=== PATIENT | male | born 1975 | race Caucasian/White ===

== ENCOUNTER 2017-05-18 15:00 | Inpatient (IN) | payer OTHER ==
[2017-05-18] MEDS ORDERED: KETOROLAC 30 MG/1 ML SDV ONE (15:15)
[2017-05-18] MEDS ORDERED: ONDANSETRON 4 MG/2 ML VIAL IVP ONE (15:22)
[2017-05-18] MEDS ORDERED: HYDROmorphONE/DILAUDID 2 MG/ML INJ IVP ONE (15:22)
[2017-05-18] MEDS ORDERED: NS 1,000 ML IV ONE ×2 (15:22→16:27)
--- NOTE | 2017-05-18 15:26 | EDPHY ---
HPI/HX/ROS/PE/MDM Narrative: CHIEF COMPLAINT: Abdominal pain, nausea, vomiting HISTORY OF PRESENT ILLNESS: The patient is a 41 y/o male with a history of alcoholism who recently relapsed this weekend and currently complaining of abdominal pain, nausea, and vomiting. He drove up from [place] yesterday and en route developed sweating, nausea, vomiting, difficulty eating, and a racing heart rate. He stopped at a [facility] ED in [place] and was treated for alcohol withdrawal with Ativan, Zofran, fluids, and given a script for Librium, which he has been taking as prescribed. Last night he felt normal and did not drink alcohol. He continued to feel okay this morning until going to a conference in [place]. While sitting during the presentation he suddenly developed profuse sweating, severe abdominal pain, and nausea. He had to abruptly leave and vomited multiple times. He tried to treat symptoms by drinking water and lying down, but continued to feel poorly. He currently feels bloated, feverish, complains of chest and back pressure, and states "my stomach feels like it will explode." His pain is worse in his epigastrium and somewhat reminiscent of prior episodes of pancreatitis. Other than Librium, he denies medication changes, marijuana or illicit drug use, cardiac or respiratory disease history, abdominal surgeries, or known ulcer disease. He has a family history of gall bladder disease. No chills, palpitations, diarrhea, urinary complaints, headache, lightheadedness. REVIEW OF SYSTEMS: Aside from elements discussed in the HPI, a comprehensive 10-point review of systems was reviewed and is negative. PAST MEDICAL HISTORY: Alcoholism, pancreatitis, hypertension, hypercholesterolemia, acid reflux SOCIAL HISTORY: From [place], attending conference in [place]. Employed. VITAL SIGNS: Reviewed by me GENERAL: Well-developed, well-nourished, uncomfortable-appearing, bloated, in no respiratory distress. HEENT: Atraumatic. Eyes: No icterus, no injection. Mouth: moist mucous membranes. No erythema or lesions. Neck: supple with no adenopathy. LUNGS: Clear to auscultation bilaterally, no wheezes, rhonchi or rales. CARDIAC: Tachycardic rate and rhythm, no rubs, murmurs or gallops. ABDOMEN: Soft, diffuse tenderness and voluntary guarding, worse in epigastrium, distended. BACK: No CVA tenderness. EXTREMITIES: No trauma. No edema. Range of motion is normal throughout. NEURO: Alert and oriented, grossly nonfocal. Mildly tremulous. SKIN: Warm and dry, no rash. PSYCHIATRIC: Normal mentation, no agitation. Portions of this note were transcribed by a biomedical engineering professor. I personally performed a history, physical exam, medical decision making, and confirmed accuracy of information the transcribed note. ED Course: This is a 41 y/o male with alcoholism and prior pancreatitis who presents with acute onset abdominal pain, nausea, and vomiting less than 24 hours after being treated for alcohol withdrawal following a relapse over the weekend. He has diffuse abdominal tenderness worst in the epigastrium with voluntary guarding and distension. He is mildly tremulous and tachycardic. Presentation suspicious for pancreatitis. Plan for IV, labs, EKG, chest x-ray, and symptom management. 1L IV NS, 4mg IV Zofran, 1mg IV Dilaudid, 0.5mg IV Ativan ordered. The 12 lead EKG was interpreted by myself. Sinus rhythm. See hard copy and/or "tracemaster" electronic copy for interpretation. Chest x-ray: nothing acute. Lipase elevated at 2200. Reassessed patient and recommended admission for pancreatitis, which he agrees to. Spoke with hospitalist service. Dr. De Paz accepts admission. Abdominal CT: acute uncomplicated pancreatitis. MDM: After obtaining the patients history and performing an examination, differential diagnosis considered included but was not limited to cholecystitis , gastritis, pancreatitis, alcohol withdrawl, kidney stones, urinary tract infections and other causes. - Data Points Imaging Results: Imaging Impressions Chest X-Ray 05/18/17 15:23 Impression: Normal chest. Abdomen CT 05/18/17 16:19 Impression: 1. Acute uncomplicated pancreatitis. 2. No CT evidence of appendicitis, abscess or bowel obstruction. 3. At least moderate hepatic steatosis. Findings were communicated by telephone with Dr. Rosey Morgan MD at 2017 17:02 Imaging: Discussed imaging studies w/ call center coordinator Radiologist, I viewed and interpreted images myself Laboratory Results: Laboratory Results 05/18/17 15:05 05/18/17 15:05 05/18/17 05/18/17 15:05 15:05 WBC 8.90 10^3/uL 10^3/uL (3.80-9.50) RBC 5.27 10^6/uL 10^6/uL (4.40-6.38) Hgb 15.6 g/dL g/dL (13.7-17.5) Hct 44.3 % % (40.0-51.0) MCV 84.1 fL fL (81.5-99.8) MCH 29.6 pg pg (27.9-34.1) MCHC 35.2 g/dL g/dL (32.4-36.7) RDW 12.5 % % (11.5-15.2) Plt Count 234 10^3/uL 10^3/uL (150-400) MPV 10.0 fL fL (8.7-11.7) Neut % (Auto) 86.0 % H % (39.3-74.2) Lymph % (Auto) 7.8 % L % (15.0-45.0) [place] % (Auto) 5.3 % % (4.5-13.0) Eos % (Auto) 0.4 % L % (0.6-7.6) Baso % (Auto) 0.3 % % (0.3-1.7) Nucleat RBC Rel Count 0.0 % % (0.0-0.2) Absolute Neuts (auto) 7.65 10^3/uL H 10^3/uL (1.70-6.50) Absolute Lymphs (auto) 0.69 10^3/uL L 10^3/uL (1.00-3.00) Absolute Monos (auto) 0.47 10^3/uL 10^3/uL (0.30-0.80) Absolute Eos (auto) 0.04 10^3/uL 10^3/uL (0.03-0.40) Absolute Basos (auto) 0.03 10^3/uL 10^3/uL (0.02-0.10) Absolute Nucleated RBC 0.00 10^3/uL 10^3/uL (0-0.01) Immature Gran % 0.2 % % (0.0-1.1) Immature Gran # 0.02 10^3/uL 10^3/uL (0.00-0.10) Sodium 134 mEq/L L mEq/L (135-145) Potassium 4.1 mEq/L mEq/L (3.5-5.2) Chloride 99 mEq/L mEq/L (97-110) Carbon Dioxide 19 mEq/l L mEq/l (22-31) Anion Gap 16 mEq/L mEq/L (8-16) BUN 13 mg/dL mg/dL (7-23) Creatinine 1.0 mg/dL mg/dL (0.7-1.3) Estimated GFR > 60 Glucose 152 mg/dL H mg/dL (70-100) Calcium 9.2 mg/dL mg/dL (8.5-10.4) Total Bilirubin 1.2 mg/dL mg/dL (0.1-1.4) Conjugated Bilirubin 0.4 mg/dL mg/dL (0.0-0.5) Unconjugated Bilirubin 0.8 mg/dL mg/dL (0.0-1.1) AST 87 IU/L H IU/L (17-59) ALT 56 IU/L IU/L (21-72) Alkaline Phosphatase 106 IU/L IU/L (38-126) Troponin I < 0.012 ng/mL ng/mL (0.000-0.034) Total Protein 7.3 g/dL g/dL (6.3-8.2) Albumin 4.5 g/dL g/dL (3.5-5.0) Lipase 2200 IU/L H IU/L (23-300) Medications Given: Discontinued Medications Hydromorphone HCl (Dilaudid) 1 mg IVP EDNOW ONE Stop: 05/18/17 15:23 Last Admin: 05/18/17 15:45 Dose: 1 mg Sodium Chloride (Ns) 1,000 mls @ 0 mls/hr IV EDNOW ONE; Wide Open PRN Reason: Protocol Stop: 05/18/17 15:23 Last Admin: 05/18/17 15:43 Dose: 1,000 mls Sodium Chloride (Ns) 1,000 mls @ 3,000 mls/hr IV ONCE ONE Stop: 05/18/17 16:46 Last Admin: 05/18/17 16:28 Dose: 1,000 mls Lorazepam (Ativan Injection) 0.5 mg IVP EDNOW ONE Stop: 05/18/17 15:39 Last Admin: 05/18/17 15:46 Dose: 0.5 mg Ondansetron HCl (Zofran) 4 mg IVP EDNOW ONE Stop: 05/18/17 15:23 Last Admin: 05/18/17 15:44 Dose: 4 mg General Time Seen by Provider: 05/18/17 15:12 Initial Vital Signs: Initial Vital Signs Temperature (C) 36.8 C 05/18/17 15:05 Heart Rate 108 H 05/18/17 15:05 Respiratory Rate 16 05/18/17 15:05 Blood Pressure 129/86 H 05/18/17 15:05 O2 Sat (%) 92 05/18/17 15:05 O2 Delivery Mode Room Air Allergies/Adverse Reactions: No Known Allergies Allergy (Unverified 05/18/17 15:05) Home Medications: Medication Instructions Recorded Escitalopram Oxalate [Lexapro] 20 mg PO DAILY 05/18/17 Lisinopril [Zestril 20 mg (*)] 20 mg PO DAILY 05/18/17 Pantoprazole Sodium [Protonix 40mg 40 mg PO DAILY PRN 05/18/17 (*)] Simvastatin 40 mg PO HS 05/18/17 Topiramate 50 mg PO HS 05/18/17 amLODIPine BESYLATE [Norvasc 10 mg 10 mg PO DAILY 05/18/17 (*)] buPROPion [Wellbutrin 75mg (*)] 75 mg PO DAILY 05/18/17 chlordiazePOXIDE [Librium 25 mg 50 mg PO TID 05/18/17 (*)] Acetaminophen [Tylenol 325mg (*)] 650 mg PO Q4HRS PRN tab 05/20/17 Departure - Departure Disposition: [facility] Acute Clinical Impression: Pancreatitis, Abdominal pain, Vomiting Condition: Fair Report Scribed for: Rosey Morgan Report Scribed by: Marj Dewey Date of Report: 05/18/17 Time of Report: 15:43
[2017-05-18 15:29] LABS: PLATELET COUNT 234 10^3/uL (150-400)
[2017-05-18] MEDS ORDERED: LORazepam 2 MG/ML INJ IVP ONE (15:38)
--- NOTE | 2017-05-18 15:57 | CPEKG ---
Heart Rate: 99 RR Interval: 606 P-R Interval: 156 QRSD Interval: 86 QT Interval: 340 QTC Interval: 437 P [place]: 39 QRS [place]: 73 T Wave [place]: -4 EKG Severity - BORDERLINE ECG - EKG Impression: SINUS RHYTHM EKG Impression: BORDERLINE INFERIOR Q WAVES EKG Impression: BORDERLINE T ABNORMALITIES, INFERIOR LEADS Electronically Signed By: Rosey Morgan 18-May-2017 22:04:37
[2017-05-18] MEDS ORDERED: IOPAMIDOL (ISOVUE-300) 100 ML BTL ONE (16:23)
[2017-05-18] MEDS ORDERED: ONDANSETRON 4 MG/2 ML VIAL IVP PRN (17:09)
[2017-05-18] MEDS ORDERED: ONDANSETRON DISINTEGRATING 4 MG TAB PO PRN (17:09)
[2017-05-18] MEDS ORDERED: ACETAMINOPHEN 325 MG TAB PO PRN (17:09)
[2017-05-18] MEDS ORDERED: NS 1,000 ML IV SCH (18:15)
[2017-05-18] MEDS: HYDROmorphone HCL/NS 0.5 MG/ML SYR IVP PRN ×2 (18:21→22:36)
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
[2017-05-18] MEDS ORDERED: D50W 25 GM/50 ML VIAL IVP PRN (22:51)
[2017-05-19] MEDS: D5W NS 1,000 ML IV SCH ×2 (02:33→10:25)
[2017-05-19] MEDS: HYDROmorphone HCL/NS 0.5 MG/ML SYR IVP PRN ×2 (03:20→07:54)
[2017-05-19] MEDS: ENOXAPARIN 40 MG/0.4 ML SYR SC SCH (07:55)
[2017-05-19] MEDS ORDERED: INSULIN LISPRO 100 UNIT/ML SC SCH (08:00)
[2017-05-19] MEDS ORDERED: PANTOPRAZOLE SODIUM 40 MG VIAL IVP SCH (09:00)
[2017-05-19] MEDS: oxyCODONE IR 5 MG TAB PO PRN ×2 (11:29→19:39)
--- NOTE | 2017-05-19 11:48 | PDMN ---
Medical Necessity Medical necessity: Patient meets inpatient criteria per physician note and [facility] M -250 Pancreatitis (patient presents w/acute abd pain, N/V; lipase 2200, CT shows pancreas w/peripancreatic inflammatory stranding; history of recovering alcoholism/prev pancreatitis; anticipated LOS > 2 midnights for bowel rest, IV hydration, IV antiemetics and Dilaudid for pain control.)
[2017-05-19] MEDS ORDERED: chlordiazePOXIDE 25 MG CAP PO PRN (12:15)
[2017-05-19] MEDS ORDERED: PANTOPRAZOLE SODIUM 40 MG TAB PO PRN (12:15)
[2017-05-19] MEDS ORDERED: NON-FORMULARY NEW DRUG (Escitalopram Oxalate [Lexapro] 20 MG) PO SCH (12:15)
--- NOTE | 2017-05-19 12:28 | HOSPPROG ---
Hospitalist Progress Note Assessment/Plan: 41 yo M with hx of etoh abuse and recurrent bouts of pancreatitis admitted for midepigastric abdominal pain found to be secondary to acute recurrent pancreatitis # acute recurrent pancreatitis: patient has had several bouts of this, including one that kept him in the hospital x 17 days including an ICU stay. This episode triggered by relapse in drinking alcohol similar to prior bouts. Abdominal CT personally reviewed showing acute recurrent pancreatitis. Will continue IVF, advance diet slowly as patient states he is beginning to feel hungry. # etoh abuse: patient largely in remission per his report but occasional relapses involving binge drinking, no e/o withdrawal currently, he states he does plan to quit drinking # anxiety/depression: continue home medications including wellbutrin # gerd: continue PPI # hypovolemic hyponatremia: mild, normalized # hyperglycemia: suspect related to stress as well as fluids containing D5, will switch to Ns # IP status Patient new to my care. Records reviewed and summarized as above. Subjective: no significant overnight events, patient still with significant abdominal pain but also beginning to feel hungry Objective: Vital Signs Temp Pulse Resp BP Pulse Ox 36.6 C 85 20 132/96 H 93 05/19/17 11:18 05/19/17 11:18 05/19/17 11:18 05/19/17 11:18 05/19/17 11:18 Laboratory Results 05/19/17 04:48 05/18/17 05/19/17 05/20/17 05:59 05:59 05:59 Intake Total 3334 Balance 3334 awake alert nad anicteric op clear mmm rrr no mrg cta b soft ttp midepigastric region no rebound or guarding bowel sounds present no cce warm dry well perfused oriented appropriate - Time Spent With Patient Time Spent with Patient: greater than 35 minutes Time Spent with Patient: Greater than 35 minutes spent on this patients care, greater than 50% of time spent counseling, educating, and coordinating care regarding the above mentioned plan. ICD10 Worksheet Patient Problems: Problems Problem Status Onset Pancreatitis Acute
[2017-05-19] MEDS ORDERED: NS 1,000 ML IV SCH (12:30)
[2017-05-19] MEDS: LISINOPRIL 20 MG TAB PO SCH (12:35)
[2017-05-19] MEDS: buPROPion 75 MG TAB PO SCH (12:35)
[2017-05-19] MEDS: ESCITALOPRAM OXALATE 10 MG TAB PO SCH (12:38)
--- NOTE | 2017-05-19 16:05 | ASMTCMCOM ---
CM Note CM Note Notes: Pt admitted for pancreatitis r/t relapse in alcohol consumption. Met w/pt to offer resources for alcohol treatment, CAGE completed. Pt reported being a recovering alcoholic since 2009; he has done inpatient stay at [facility] in the past and he continues to follow up w/psychiatrist, PCP, [facility]. He states that he has had a few relapses and they are triggered by circumstances, reported losing his mom recently and recent separation from . He lives in [place] and was in [place] for work conference when he became ill and brought himself to [facility]. Pt was open to receiving resources for alcohol treatment and seems to be motivated to get healthy. Pt's car is at [facility] and when he is dc'd from hosp he plans to take cab there and have relatives come up from [place] and drive him back. CM will follow. Date Signed: 05/19/2017 04:04 PM Electronically Signed By:Charlee Wilson RN
[2017-05-19] MEDS ORDERED: NON-FORMULARY NEW DRUG (Simvastatin [Simvastatin] 40 MG) PO SCH (21:00)
[2017-05-19] MEDS ORDERED: TOPIRAMATE 25 MG TAB PO SCH (21:00)
[2017-05-19] MEDS ORDERED: ATORVASTATIN CALCIUM 20 MG TAB PO SCH (21:00)
[2017-05-19] MEDS ORDERED: NON-FORMULARY NEW DRUG (Topiramate [Topiramate] 50 MG) PO SCH (21:00)
[2017-05-20] MEDS: oxyCODONE IR 5 MG TAB PO PRN (00:55)
[2017-05-20 09:02] VITALS: BP 108/74
[2017-05-20] MEDS: ENOXAPARIN 40 MG/0.4 ML SYR SC SCH (09:26)
[2017-05-20] MEDS: LISINOPRIL 20 MG TAB PO SCH (09:26)
[2017-05-20] MEDS: ESCITALOPRAM OXALATE 10 MG TAB PO SCH (09:27)
[2017-05-20] MEDS: buPROPion 75 MG TAB PO SCH (09:27)
--- NOTE | 2017-05-20 10:02 | PDDCSUM ---
Discharge Summary Discharge Summary: Dates of service 05/18-05/20/17 Consultations: none Procedures: abd CT Hospital course by problem: 41 yo M with hx of etoh abuse and recurrent bouts of pancreatitis admitted for midepigastric abdominal pain found to be secondary to acute recurrent pancreatitis # acute recurrent pancreatitis: patient has had several bouts of this, including one that kept him in the hospital x 17 days including an ICU stay. This episode triggered by relapse in drinking alcohol similar to prior bouts. Abdominal CT personally reviewed showing acute recurrent pancreatitis. Pain now essentially resolved and patient tolerating diet without issues # etoh abuse: patient largely in remission per his report but occasional relapses involving binge drinking, no e/o withdrawal currently, he states he does plan to quit drinking # anxiety/depression: continue home medications including wellbutrin # gerd: continue PPI # hypovolemic hyponatremia: mild, normalized # hyperglycemia: suspect related to stress as well as fluids containing D5, will switch to Ns Discharge to home >35 min spent in discharge, more than half in coordination of care
== END 2017-05-20 11:55 | disposition home or self-care (01) | DRG 439 ==
LOC: OBSVTOIN 16:41 → F3E 17:43
PROVIDERS: ADMIT Internal Medicine; ATTEND Internal Medicine
DX: K85.20 Alcohol induced acute pancreatitis without necrosis or infection (principal); E87.1 Hypo-osmolality and hyponatremia; F10.20 Alcohol dependence, uncomplicated; F41.8 Other specified anxiety disorders; K21.9 Gastro-esophageal reflux disease without esophagitis; E86.1 Hypovolemia; R73.9 Hyperglycemia, unspecified; I10 Essential (primary) hypertension; E78.00 Pure hypercholesterolemia, unspecified
CPT/HCPCS: J1170; J1650; J1885; J2060; J2405; Q9967